=== PATIENT | male | born 1990 ===

== ENCOUNTER 2018-12-21 20:48 | Inpatient (IN) | payer OTHER ==
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
[2018-12-21] MEDS ORDERED: HYDROmorphone 1 MG/ML 1 ML SYRINGE IM STA (21:33)
[2018-12-21] MEDS ORDERED: HYDROmorphone 1 MG/ML 1 ML SYRINGE IVP STA (21:45)
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
[2018-12-21 22:09] LABS: Basophils # (A) 0.1 k/uL (0-0.2); Basophils % (A) 1 %; Eosinophils # (A) 0.1 k/uL (0-0.7); Eosinophils % (A) 1 %; HCT 43.6 % (39.0-53.0); Lymphocytes # (A) 1.9 k/uL (1.0-4.8); Lymphocytes % (A) 22 %; MCH 33.4 pg (25.0-35.0); MCHC 34.3 g/dL (31.0-37.0); MCV 97.3 fL (80.0-100.0); Mean Platelet Volume 7.4; Monocytes # (A) 0.4 k/uL (0-1.0); Monocytes % (A) 5 %; Neutrophils % (A) 69 %; Platelet Count 194 k/uL (150-450); RBC 4.47 m/uL (4.30-5.90); RDW 12.4 % (11.5-15.5); WBC 8.7 k/uL (3.8-10.6)
[2018-12-21 22:15] LABS: African American GFR (CKD) >90 (>60 ml/min/1.73 sqM); Anion Gap 12 mmol/L; Blood Urea Nitrogen 16 mg/dL (9-20); Calcium 9.2 mg/dL (8.4-10.2); Carbon Dioxide 21 mmol/L (22-30); Chloride 104 mmol/L (98-107); Glucose 397 mg/dL (74-99); Potassium 4.5 mmol/L (3.5-5.1); Sodium 137 mmol/L (137-145)
[2018-12-21 22:25] LABS: INR 0.9 (<1.2); Partial Thromboplastin Time 21.9 sec (22.0-30.0); Prothrombin Time 9.5 sec (9.0-12.0)
[2018-12-21] MEDS ORDERED: HYDROmorphone 0.5 MG/0.5 ML SYRINGE IVP STA (22:39)
--- NOTE | 2018-12-21 22:41 | XR ---
EXAMINATION TYPE: XR knee complete LT DATE OF EXAM: 12/21/2018 COMPARISON: NONE HISTORY: Knee pain TECHNIQUE: 3 views FINDINGS: I see no fracture nor dislocation. Joint spaces are normal. There is no sign of knee joint effusion. IMPRESSION: Negative left knee exam.
--- NOTE | 2018-12-21 22:42 | XR ---
EXAMINATION TYPE: XR chest 1V DATE OF EXAM: 12/21/2018 COMPARISON: NONE HISTORY: Chest pain TECHNIQUE: Single frontal view of the chest is obtained. FINDINGS: Heart and mediastinum are normal. Lungs are clear. Diaphragm is normal. There is no pleura l effusion or pneumothorax. IMPRESSION: Normal chest
--- NOTE | 2018-12-22 00:44 | XR ---
EXAMINATION TYPE: XR femur LT DATE OF EXAM: 12/22/2018 COMPARISON: NONE HISTORY: Pain TECHNIQUE: 4 views FINDINGS: I see no fracture nor dislocation. Hip joint and knee joint appear intact. Joint spaces are fairly normal. Sacroiliac joint appears normal. IMPRESSION: Negative left femur exam.
[2018-12-22] MEDS ORDERED: MORPHINE SULFATE 4 MG/ML SYRINGE IV PRN (01:21)
[2018-12-22] MEDS ORDERED: NALOXONE 0.4 MG/ML 1 ML VIAL IV PRN (01:21)
[2018-12-22] MEDS ORDERED: HYDROmorphone 0.5 MG/0.5 ML SYRINGE IVP PRN (01:21)
[2018-12-22] MEDS ORDERED: HYDROmorphone 1 MG/ML 1 ML SYRINGE IVP PRN (01:21)
[2018-12-22] MEDS ORDERED: IBUPROFEN 400 MG TAB PO PRN (01:21)
[2018-12-22] MEDS ORDERED: ACETAMINOPHEN TAB 325 MG TAB PO PRN (01:21)
[2018-12-22] MEDS ORDERED: SODIUM CHLORIDE 0.9% 1,000 ML IV SCH (01:30)
--- NOTE | 2018-12-22 02:07 | CT ---
EXAMINATION TYPE: CT lower extremity LT wo con DATE OF EXAM: 12/22/2018 COMPARISON: None HISTORY: pain CT DLP: 888.4 mGycm Automated exposure control for dose reduction was used. FINDINGS: Multiple axial sections were obtained from the acetabulum to the bottom of the foot with no contrast. Visualized left hemipelvis appears intact. Acetabulum is intact. Femur is intact. Knee joint spaces a re fairly normal. The tibia and fibula appear intact. There is no evidence of soft tissue mass. I see no bony destructive process. Bones of the foot appear intact. There is no evidence of knee joint eff usion. There is no pathologic fluid collection. IMPRESSION: NEGATIVE CT SCAN OF THE LEFT LEG. NO FRACTURE SEEN.
[2018-12-22] MEDS ORDERED: INSULIN REGULAR 100 UNIT/ML VIAL IV ONE (02:37)
[2018-12-22 02:46] LABS: Glucose,Whole Blood 270 mg/dL (75-99)
[2018-12-22 07:08] VITALS: BP 120/68; PULSE 75; RESP 17; TEMP 98
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
== END 2018-12-22 16:35 | disposition home or self-care (01) | DRG 552 ==
LOC: EC 20:48 → OBSVTOIN 12-22 01:19 → 4SSUR 12-22 01:19
PROVIDERS: ADMIT Surgery; ATTEND Surgery
DX: S32.038A Other fracture of third lumbar vertebra, initial encounter for closed fracture (principal); V43.52XA Car driver injured in collision with other type car in traffic accident, initial encounter; Y92.410 Unspecified street and highway as the place of occurrence of the external cause; E11.9 Type 2 diabetes mellitus without complications; F17.210 Nicotine dependence, cigarettes, uncomplicated; S39.012A Strain of muscle, fascia and tendon of lower back, initial encounter; S46.912A Strain of unspecified muscle, fascia and tendon at shoulder and upper arm level, left arm, initial encounter; S76.012A Strain of muscle, fascia and tendon of left hip, initial encounter; Z79.4 Long term (current) use of insulin
CPT/HCPCS: 36415; 70450; 71045; 72125; 72131; 72192; 80048; 85025; 85610; 85730; 96374; 96376; 99285

== ENCOUNTER → 2018-12-27 | Outpatient (CLI) | payer OTHER ==
--- NOTE | 2018-12-28 21:22 | US ---
EXAMINATION TYPE: US venous doppler duplex LE LT DATE OF EXAM: 12/27/2018 4:32 PM COMPARISON: NONE CLINICAL HISTORY: I80.9 Phlebitis and thrombophlebitis of unspecifie. Pain and numbness left leg. SIDE PERFORMED: left TECHNIQUE: The lower extremity deep venous system is examined utilizing real time linear array sonog karyna with graded compression, doppler sonography and color-flow sonography. VESSELS IMAGED: External Iliac Vein (EIV) Common Femoral Vein Deep Femoral Vein Greater Saphenous Vein * Femoral Vein Popliteal Vein Small Saphenous Vein * Proximal Calf Veins (* superficial vessels) Left Leg: No evidence of DVT as visualized. Extremely limited exam, patient unable to hold still, co nstantly moving. Unable to perform compressions due to patients pain and movement IMPRESSION: 1. Left lower extremity ultrasound negative for deep venous thrombosis. 2. There is some limitation on this examination.
== END | disposition home or self-care (01) ==
LOC: RADUSWWP 16:07
PROVIDERS: ATTEND Orthopaedic Surgery Orthopaedic Surgery of the Spine
DX: I80.9 Phlebitis and thrombophlebitis of unspecified site (principal); M54.5 Low back pain